=== PATIENT | female | born 2005 | race Two or more races ===

== ENCOUNTER 2025-01-12 14:37 | Emergency (ER) | payer BC, OTHER ==
[~2025-01-12] VITALS: Ht 170.2 cm; Wt 84.4 kg
--- NOTE | 2025-01-12 16:03 | ED.PDOC ---
History of Present Illness HPI Comments 19Y F with PMHx HTN presents to ED with chief complaint dizziness and headache x2days. Pt describes headache as sharp and throbbing. Current pain level 8/10. Additional symptom includes blurry vision. Pt denies chest pain and SOB. Pt gave last year and was taking HTN medication throughout and after the due to being high-risk. Pt does not know which medication she took during the but states she took Losartan afterwards. Pt has not taken Losartan for approximately 2 months. Pt does not currently have a PCP due to being new to the area. No other symptoms/history reported. BP during triage 154/102. 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 APPRENTICE History Family History Family History: Unknown Social History Smoker: Non-Smoker Alcohol: Denies ETOH Use Drugs: Denies Drug Use Lives In: Home Constitutional: denies: chills, diaphoresis, fatigue, fever, malaise, sweats, weakness, others EENTM: reports: blurred vision; denies: double vision, ear bleeding, ear discharge, ear drainage, ear pain, ear ringing, eye pain, eye redness, hearing loss, mouth pain, mouth swelling, nasal discharge, nose bleeding, nose congestion, nose pain, photophobia, tearing, throat pain, throat swelling, voice changes, others Respiratory: denies: cough, hemoptysis, orthopnea, SOB at rest, shortness of breath, SOB with excertion, stridor, wheezing, others Cardiovascular: denies: chest pain, dizzy spells, diaphoresis, Dyspnea on exertion, edema, irregular heart beat, left arm pain, lightheadedness, palpitations, PND, syncope, others Gastrointestinal: denies: abdomen distended, abdominal pain, blood streaked bowels, constipated, diarrhea, dysphagia, difficulty swallowing, hematemesis, melena, nausea, poor appetite, poor fluid intake, rectal bleeding, rectal pain, vomiting, others Genitourinary: denies: abnormal vagina bleeding, burning, dyspareunia, dysuria, flank pain, frequency, hematuria, incontinence, pain, , vagina discharge, urgency, others Neurological: reports: dizziness, headache; denies: fainting, left sided numbness, left sided weakness, numbness, paresthesia, pre-existing deficit, right sided numbness, right sided weakness, seizure, speech problems, tingling, tremors, weakness, others Musculoskeletal: denies: back pain, gout, joint pain, joint swelling, muscle pain, muscle stiffness, neck pain, others Integumetry: denies: bruises, change in color, change in hair/nails, dryness, laceration, lesions, lumps, rash, wounds, others Allergic/Immunocompromised: denies: Difficulty Healing, Frequent Infections, Hives, Itching, others Hematologic/Lymphatic: denies: anemia, blood clots, easy bleeding, easy bruising, swollen glands, others Endocrine: denies: excessive hunger, excessive sweating, excessive thirst, excessive urination, flushing, intolerance to cold, intolerance to heat, unexplained weight gain, unexplained weight loss, others Psychiatric: denies: anxiety, bipolar disorder, depression, hopeless, panic disorder, schizophrenia, sleepless, suicidal, others All Other Systems: Reviewed and Negative Physical Exam General Appearance: No Apparent Distress, Normal HEENT: Normal ENT Inspection, Pharynx Normal, TMs Normal Neck: Full Range of Motion, Non-Tender, Normal, Normal Inspection Respiratory: Chest Non-Tender, Lungs Clear, No Accessory Muscle Use, No Respiratory Distress, Normal Breath Sounds Cardiovascular: No Edema, No JVD, No Murmur, No Gallop, Normal Peripheral Pulses, Regular Rate/Rhythm Breast Exam: Deferred Gastrointestinal: No Organomegaly, Non Tender, No Pulsatile Mass, Normal Bowel Sounds, Soft Genitalia: Deferred Pelvic: Deferred Rectal: Deferred Extremities: No calf tenderness, Normal capillary refill, Normal inspection, Normal range of motion, Non-tender, No pedal edema Musculoskeletal : Apperance: Normal Neurologic: Alert, jail guard II-XII nml as Tested, No Motor Deficits, Normal Affect, Normal Mood, No Sensory Deficits Cerebellar Function: Normal Reflexes: Normal Skin: Dry, Normal Color, Warm Lymphatic: No Adenopathy Was a procedure done? Was a procedure done?: No Differential Dx Considerations may include: MIGRAINE, TENSION HEADACHE, HYPERTENSIVE URGENCY, UNCONTROLLED BLOOD PRESSURE X-Ray, Labs, Meds, VS Vital Signs Date Time Temp Pulse Resp B/P (MAP) Pulse Ox O2 Delivery O2 Flow Rate FiO2 01/12/25 15:04 89 01/12/25 14:59 98.7 109 16 154/102 (119) 97 98.7 Lab Test 01/12/25 16:44 01/12/25 15:00 Range/Units Urine Color Colorless Yellow Urine Clarity Clear Clear Urine pH 6.0 5.0-9.0 Urine Specific [place] 1.010 1.001-1.035 Urine Protein Negative Negative Urine Ketones Negative Negative Urine Blood 1+ H Negative /uL Urine Nitrite Negative Negative Urine Bilirubin Negative Negative Urine Urobilinogen Normal Negative mg/dL Urine Leukocyte Esterase Trace Negative /uL Urine RBC 11 0 - 4 /hpf Urine Microscopic WBC 3 0-5 /HPF Urine Squamous Epithelial Cells Mod <5 /hpf Urine Bacteria None seen None Seen /hpf Urine Glucose Normal Normal mg/dL POC Glucose 132 H 70-106 mg/dl Current Medications Medications (Trade) Dose Ordered Sig/Deisy Route Start Time Stop Time Status Last Admin Ketorolac Tromethamine (Toradol Injection) 30 mg ONCE ONCE IM 01/12/25 16:15 01/12/25 16:16 DC 01/12/25 16:31 Ondansetron HCl (Zofran Po) 4 mg ONCE ONCE PO 01/12/25 16:45 01/12/25 16:46 DC 01/12/25 16:47 X-Ray, Labs, Meds, VS Comment IMAGING: X-RAYS AND CT SCANS WERE REVIEWED AND INTERPRETED BY THIS PROVIDER, IMAGING SHOWS NO FRACTURES AND NO PATHOLOGICAL DISEASE. PENDING RADIOLOGY REVIEW. LABORATORY: LABS REVIEWED AND INTERPRETED BY THIS PROVIDER. NO SIGNIFICANT ABNORMALITIES NOTED. PATIENT HAS PRIOR MEDICAL VISITS REVIEWED. MED RECONCILIATION PERFORMED VITAL SIGNS REVIEWED Time of 1ST Reevaluation: 16:10 Reevaluation 1ST: Unchanged Patient Education/Counseling: Diagnosis, Treatment, Need For Follow Up (FOLLOW UP WITH PCP IN THE NEXT 2-4 DAYS. RETURN TO THE EMERGENCY DEPARTMENT IF SYMPTOMS WORSEN OVER THE NEXT 24 HOURS.) Family Education/Counseling: No Family Present Departure 1 Departure Time of Disposition: 17:28 Impression: Primary Impression: High blood pressure Qualified Codes: I10 - Essential (primary) hypertension Disposition: HOME / SELF CARE / HOMELESS Condition: Fair Discharged With: Self Critical Care Note Critical Care Time?: No Stability Stability form required: No Heart Score Heart Score: Heart Score Response (Comments) Value History Slightly Suspicious 0 EKG Normal 0 Age <45 0 Risk Factors 1 or 2 risk factors 1 Troponin Normal limit 0 Total 1 I personally scribed for HEMALATHA MANNING ([email or web address]) on 01/12/25 at 16:03. Electronically submitted by Judith Ellington ([email or web address]). HEMALATHA MANNING Jan 12, 2025 16:03
[2025-01-12] MEDS: KETOROLAC TROMETH 30 MG/ML 1ML VIAL IM ONE (16:31)
[2025-01-12 16:45] LABS: Urine Bacteria None Seen /hpf (None Seen)
[2025-01-12] MEDS: ONDANSETRON ODT 4 MG TAB PO ONE (16:47)
[2025-01-12 16:56] LABS: Urine Blood 1+ /uL (Negative); Urine Clarity Clear (Clear); Urine Color Colorless (Yellow); Urine Protein, UAD Negative (Negative); Urine Squamous Epithelial Cell MOD /hpf (<5); Urine Urobilinogen Normal (Negative); Urine WBC 3 /HPF (0-5)
[2025-01-12] MEDS ORDERED: LOSA-533 PO (17:29)
[2025-01-12 17:48] VITALS: BP 118/86; PULSE 98; RESP 20; TEMP 98; O2SAT 95
--- NOTE | 2025-01-14 07:12 | ECG ---
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
== END 2025-01-12 17:51 | disposition home or self-care (01) ==
LOC: ER 14:37
DX: I10 Essential (primary) hypertension (principal); H53.8 Other visual disturbances
CPT/HCPCS: 81001; 82947; 93005; 96372; 99284; J1885; Q0162; 82962; 96374; 96375; 96376